=== PATIENT | male | born 1955 | race Asian ===

== ENCOUNTER 2018-10-07 10:24 | Emergency (ER) | payer SELFPAY ==
[~2018-10-07] VITALS: Ht 177.8 cm; Wt 113.6 kg
[2018-10-07] MEDS ORDERED: AUD NEB (10:36)
[2018-10-07] MEDS ORDERED: LOSA25TA41 PO (10:36)
[2018-10-07] MEDS ORDERED: ATEN25TA PO (10:36)
[2018-10-07] MEDS ORDERED: OMEG-50 PO (10:36)
[2018-10-07 15:05] VITALS: BP 210/139
== END 2018-10-07 15:27 | disposition home or self-care (01) ==
LOC: EMS 10:25
DX: J40 Bronchitis, not specified as acute or chronic (principal); R07.89 Other chest pain; R60.0 Localized edema; E11.9 Type 2 diabetes mellitus without complications; I10 Essential (primary) hypertension; I25.2 Old myocardial infarction; Z87.891 Personal history of nicotine dependence

== ENCOUNTER → 2019-12-17 | Outpatient (CLI) | payer OTHER ==
[~2019-12-17] MED LIST: ATEN25TA PO; AUD NEB; LOSA25TA71 PO; OMEG-50 PO
[2019-12-17 11:09] LABS: BASOPHILS % (AUTO) 0.5 % (0.0-2.0); HEMOGLOBIN 14.1 g/dL (13.5-17.5); LYMPHOCYTES # (AUTO) 1.2 K/uL (1.0-4.8); MEAN CORPUSCULAR HEMOGLOBIN 31.4 pg (26.0-34.0); MEAN CORPUSCULAR HGB CONC 33.6 G/dL (31.0-37.0); MEAN CORPUSCULAR VOLUME 94 fL (80-100); MONOCYTES # (AUTO) 0.4 K/uL (0.1-1.0); MONOCYTES % (AUTO) 7.1 % (2.0-9.0); NEUTROPHILS # (AUTO) 4.3 K/uL (1.8-7.7); NEUTROPHILS % (AUTO) 68.4 % (40.0-70.0); PLATELET COUNT (AUTO) 171 K/uL (150-450); RED BLOOD CELL COUNT(AUTO) 4.49 MIL/uL (4.50-5.90); RED CELL DISTRIBUTION WIDTH 14.1 % (11.5-14.5)
[2019-12-17 11:26] LABS: ALBUMIN 3.3 g/dL (3.4-5.0); CALCIUM, TOTAL 8.4 mg/dL (8.8-10.5); CREATININE 1.77 mg/dL (0.60-1.30); PHOSPHORUS 2.8 mg/dL (2.5-4.9); POTASSIUM 4.1 mmol/L (3.5-5.1)
[2019-12-17 12:08] LABS: APPEARANCE,URINE CLEAR (CLEAR); BILIRUBIN,URINE NEGATIVE (NEGATIVE); GLUCOSE, URINE (UA) 250 mg/dL (NEGATIVE); KETONES,URINE NEGATIVE (NEGATIVE); LEUKOCYTE ESTERASE ,URINE NEGATIVE (NEGATIVE); NITRATE,URINE NEGATIVE (NEGATIVE); OCCULT BLOOD,URINE TRACE (NEGATIVE); PH,URINE 6.5 (5.0-8.0); PROTEIN,URINE SEE CONFIRM (NEGATIVE); UROBILINOGEN,URINE 0.2 mg/dL (<=1.0)
[2019-12-17 12:21] LABS: SULFOSALICYLIC ACID,URINE 1+ (Negative)
[2019-12-17 12:24] LABS: BACTERIA,URINE None Seen /HPF (None Seen); RBC,URINE None Seen /HPF (0-2); SQUAMOUS EPITHELIAL CELL,UR Few /LPF (None Seen); WBC,URINE None Seen /HPF (0-5)
[2019-12-17 12:36] LABS: CREATININE,URINE RANDOM 85.8 mg/dL (30.0-125.0); PROTEIN,URINE RANDOM 168 mg/dL (0-11.9)
== END | disposition home or self-care (01) ==
LOC: RADPV 10:22
PROVIDERS: ATTEND Internal Medicine Nephrology
DX: I12.9 Hypertensive chronic kidney disease with stage 1 through stage 4 chronic kidney disease, or unspecified chronic kidney disease (principal); N18.3 Chronic kidney disease, stage 3 (moderate); E03.9 Hypothyroidism, unspecified; I25.83 Coronary atherosclerosis due to lipid rich plaque; N28.1 Cyst of kidney, acquired
CPT/HCPCS: 76770; 82043; 82570; 83735; 84156

== ENCOUNTER 2020-10-06 14:34 | Emergency (ER) | payer OTHER ==
[~2020-10-06] VITALS: Ht 175.3 cm; Wt 118.2 kg
[~2020-10-06 14:34] MED LIST changes: +ATEN-73 PO; -ATEN25TA PO; +LOSA25TA21 PO; -LOSA25TA71 PO
[2020-10-06] MEDS ORDERED: LEVO50 PO (14:46)
[2020-10-06] MEDS ORDERED: FURO80 PO (14:46)
[2020-10-06] MEDS ORDERED: LOSA50TA37 PO (14:46)
[2020-10-06] MEDS ORDERED: SUMA25TA9 PO (14:46)
[2020-10-06] MEDS ORDERED: OMEG-135 PO (14:46)
[2020-10-06] MEDS ORDERED: CETI-450 PO (14:46)
[2020-10-06] MEDS ORDERED: CARV25 PO (14:46)
[2020-10-06] MEDS ORDERED: AMLO-258 PO (14:46)
[2020-10-06] MEDS ORDERED: ASPI-728 PO (14:46)
[2020-10-06] MEDS ORDERED: CANA100T PO (14:46)
[2020-10-06] MEDS ORDERED: ATOR40TA28 PO (14:46)
[2020-10-06] MEDS ORDERED: DEXAMETHASONE SOD PHOS 4 MG/ML 5 ML VIAL IM ONE (21:45)
[2020-10-06 22:21] VITALS: BP 132/80
== END 2020-10-06 22:23 | disposition home or self-care (01) ==
LOC: EMS 14:42
DX: S16.1XXA Strain of muscle, fascia and tendon at neck level, initial encounter (principal); E11.9 Type 2 diabetes mellitus without complications; E78.00 Pure hypercholesterolemia, unspecified; X58.XXXA Exposure to other specified factors, initial encounter; Y93.89 Activity, other specified; Y92.89 Other specified places as the place of occurrence of the external cause; Y99.8 Other external cause status
CPT/HCPCS: 70450; 72125; 82962; 96372; 99285; J1100

== ENCOUNTER 2024-01-19 11:40 | Emergency (ER) | payer MEDICARE, OTHER ==
[~2024-01-19] VITALS: Ht 175.3 cm; Wt 131.4 kg
[~2024-01-19 11:40] MED LIST changes: +ALBU2.5V39 NEB; +AMLO-258 PO; +ASPI-1450 PO; -ATEN-73 PO; +ATOR40TA28 PO; -AUD NEB; +CANA100T PO; +CARV25 PO; +CETI-450 PO; +FURO80 PO; +LEVO50 PO; +LOSA-382 PO; -LOSA25TA21 PO; +OMEG-135 PO; -OMEG-50 PO; +SUMA25TA15 PO
[2024-01-19 11:43] VITALS: TEMP 98
[2024-01-19 12:38] LABS: COVID AG,FIA SOURCE NASAL SWAB
[2024-01-19] MEDS: FUROSEMIDE 40 MG/4 ML VIAL IVP ONE (12:41)
[2024-01-19 12:51] LABS: BASOPHILS % (AUTO) 1.1 % (0.0-2.0); HEMATOCRIT 44.6 % (41-53); HEMOGLOBIN 14.8 g/dL (13.5-17.5); LYMPHOCYTES # (AUTO) 1.1 K/uL (1.0-4.8); LYMPHOCYTES % (AUTO) 19.7 % (22.0-44.0); MEAN CORPUSCULAR HEMOGLOBIN 31.8 pg (26.0-34.0); MEAN CORPUSCULAR HGB CONC 33.3 G/dL (31.0-37.0); MEAN CORPUSCULAR VOLUME 96 fL (80-100); MONOCYTES # (AUTO) 0.5 K/uL (0.1-1.0); MONOCYTES % (AUTO) 8.2 % (2.0-9.0); NEUTROPHILS # (AUTO) 3.7 K/uL (1.8-7.7); PLATELET COUNT (AUTO) 151 K/uL (150-450); RED BLOOD CELL COUNT(AUTO) 4.67 MIL/uL (4.50-5.90); RED CELL DISTRIBUTION WIDTH 14.6 % (11.5-14.5); WHITE BLOOD COUNT (AUTO) 5.6 K/uL (4.5-11.0)
[2024-01-19 13:00] LABS: ANION GAP 11 mmol/L (8-16); CALCIUM, TOTAL 8.2 mg/dL (8.8-10.5); CARBON DIOXIDE 24 mmol/L (22-29); CHLORIDE 105 mmol/L (98-107); CREATININE 2.11 mg/dL (0.60-1.30); GLOMERULAR FILTR. RATE CALC 32 mL/min (>60); GLUCOSE,RANDOM 123 mg/dL (70-110); POTASSIUM 4.5 mmol/L (3.5-5.1); SODIUM SERUM 140 mmol/L (136-145); UREA NITROGEN, BLOOD 29 mg/dL (7-18)
[2024-01-19 13:00] LABS: APPEARANCE,URINE CLEAR (CLEAR); BILIRUBIN,URINE NEGATIVE (NEGATIVE); COLOR,URINE LIGHT YELLOW (YELLOW); GLUCOSE, URINE (UA) >=1000 mg/dL (NEGATIVE); KETONES,URINE NEGATIVE (NEGATIVE); LEUKOCYTE ESTERASE ,URINE NEGATIVE (NEGATIVE); NITRATE,URINE NEGATIVE (NEGATIVE); OCCULT BLOOD,URINE SMALL (NEGATIVE); PH,URINE 5.5 (5.0-8.0); PROTEIN,URINE 100-200,SEE CONFIRM mg/dL (NEGATIVE); SPECIFIC GRAVITIY, URINE 1.017 (1.003-1.030); UROBILINOGEN,URINE <=1.0 mg/dL (<=1.0)
[2024-01-19 13:03] LABS: INFLUENZA TYPE A NEGATIVE FOR TYPE A (NEGATIVE); INFLUENZA TYPE B NEGATIVE FOR TYPE B (NEGATIVE); SARS-COV2 (COVID) ANTIGEN,FIA Negative (Negative)
[2024-01-19 13:06] LABS: ALANINE AMINOTRANSFERASE 28 U/L (12-78); ALBUMIN 3.2 g/dL (3.4-5.0); ALKALINE PHOSPHATASE 80 U/L (46-116); ASPARTATE AMINOTRANSFERASE 22 U/L (15-37); BILIRUBIN,TOTAL 0.7 mg/dL (0.1-1.0); LIPASE 74 U/L (16-77); TOTAL PROTEIN, SERUM 7.3 g/dL (6.4-8.2)
[2024-01-19 13:11] LABS: LACTIC ACID 1.4 mmol/L (0.4-2.0)
[2024-01-19 13:14] LABS: SULFOSALICYLIC ACID,URINE 1+ (Negative)
[2024-01-19 13:15] LABS: BACTERIA,URINE None Seen /HPF (None Seen); RBC,URINE None Seen /HPF (0-2); SQUAMOUS EPITHELIAL CELL,UR Few /LPF (None Seen); WBC,URINE None Seen /HPF (0-5)
[2024-01-19 13:18] LABS: B-TYPE NATRIURETIC PEPTIDE 55 pg/mL (0-100)
[2024-01-19 13:30] LABS: TROPONIN I-HIGH SENSITIVITY 32 ng/L (<76)
[2024-01-19] MEDS ORDERED: ACETAMINOPHEN 325 MG TABLET PO PRN (14:15)
[2024-01-19] MEDS ORDERED: ONDANSETRON HCL 4 MG/2 ML VIAL IVP PRN (14:15)
[2024-01-19] MEDS ORDERED: BISACODYL 10 MG RECTAL RECTAL SUPPOSITORY PR PRN (14:15)
[2024-01-19] MEDS ORDERED: FURO-151 PO (14:43)
[2024-01-19] MEDS ORDERED: GUAIFDM PO (14:44)
[2024-01-19 14:53] LABS: THYROID STIMULATING HORMONE 2.97 uIU/mL (0.36-3.74)
[2024-01-19 14:58] VITALS: BP 114/79; PULSE 64; RESP 18
[2024-01-19] MEDS ORDERED: HEPARIN SODIUM,PORCINE 5,000 UNITS/ML VIAL SQ SCH (16:00)
[2024-01-19] MEDS ORDERED: DOCUSATE SODIUM 100 MG CAPSULE PO SCH (21:00)
[2024-01-20] MEDS ORDERED: FUROSEMIDE 40 MG/4 ML VIAL IVP SCH (09:00)
[2024-01-20] MEDS ORDERED: ASPIRIN 81 MG CHEWABLE TABLET PO SCH (09:00)
[2024-01-20] MEDS ORDERED: FAMOTIDINE 20 MG TABLET PO SCH (09:00)
[2024-01-20] MEDS ORDERED: ATORVASTATIN CALCIUM 20 MG TABLET PO SCH (09:00)
== END 2024-01-19 15:02 | disposition home or self-care (01) ==
LOC: EMS 12:08
DX: R60.0 Localized edema (principal); E66.01 Morbid (severe) obesity due to excess calories; G47.30 Sleep apnea, unspecified; J45.909 Unspecified asthma, uncomplicated; E11.9 Type 2 diabetes mellitus without complications; E78.00 Pure hypercholesterolemia, unspecified; I11.0 Hypertensive heart disease with heart failure; I50.9 Heart failure, unspecified; Z87.891 Personal history of nicotine dependence; Z98.890 Other specified postprocedural states; Z20.822 Contact with and (suspected) exposure to COVID-19
CPT/HCPCS: 99285; 96374; 71045; 87426; 80053; 81001; 82962; 83605; 83690; 83880; 84443; 84484; 85025; 87040; 87804; 36415; 93005; J1940; 81002

== ENCOUNTER 2024-04-18 07:57 | Emergency (ER) | payer MEDICARE, OTHER ==
[~2024-04-18] VITALS: Ht 170.2 cm; Wt 100.0 kg
[~2024-04-18 07:57] MED LIST changes: +FURO-151 PO; +GUAIFDM PO
[2024-04-18] MEDS ORDERED: SEMA7TAB2 PO (08:24)
[2024-04-18] MEDS ORDERED: SACU1TAB4 PO (08:24)
[2024-04-18] MEDS ORDERED: EMPA10TA3 PO (08:24)
[2024-04-18] MEDS ORDERED: ISOS30TA92 PO (08:24)
[2024-04-18] MEDS ORDERED: FINE10TA PO (08:24)
[2024-04-18 08:55] LABS: BASOPHILS % (AUTO) 0.6 % (0.0-2.0); EOSINOPHILS % (AUTO) 3.3 % (1.0-6.0); HEMATOCRIT 41.1 % (41-53); HEMOGLOBIN 13.6 g/dL (13.5-17.5); LYMPHOCYTES # (AUTO) 1.2 K/uL (1.0-4.8); LYMPHOCYTES % (AUTO) 15.1 % (22.0-44.0); MEAN CORPUSCULAR HEMOGLOBIN 31.5 pg (26.0-34.0); MEAN CORPUSCULAR VOLUME 96 fL (80-100); MONOCYTES # (AUTO) 0.7 K/uL (0.1-1.0); NEUTROPHILS # (AUTO) 5.5 K/uL (1.8-7.7); PLATELET COUNT (AUTO) 151 K/uL (150-450); RED CELL DISTRIBUTION WIDTH 14.2 % (11.5-14.5); WHITE BLOOD COUNT (AUTO) 7.7 K/uL (4.5-11.0)
[2024-04-18 09:04] LABS: CALCIUM, TOTAL 8.5 mg/dL (8.8-10.5); CREATININE 2.6 mg/dL (0.60-1.30); POTASSIUM 4.2 mmol/L (3.5-5.1)
[2024-04-18] MEDS: OxyCODONE HCL/ACETAMINOPHEN 5-325 MG TABLET PO ONE (09:14)
[2024-04-18] MEDS: CefTRIAXone SODIUM 1 GM/VIAL IM ONE (10:08)
[2024-04-18] MEDS: LIDOCAINE/PF 1% 2 ML VIAL IM ONE (10:09)
[2024-04-18] MEDS ORDERED: PERCT PO (10:44)
[2024-04-18] MEDS ORDERED: CEPH-558 PO (10:44)
[2024-04-18 11:02] VITALS: BP 105/78; PULSE 68; RESP 18; TEMP 98
[2024-04-20] MEDS ORDERED: AMLO5TAB66 PO (11:37)
[2024-04-20] MEDS ORDERED: FURO20TA4 PO (11:37)
[2024-04-20] MEDS ORDERED: FLUT16H NASAL (11:37)
[2024-04-20] MEDS ORDERED: SEMA14TA2 PO (11:37)
== END 2024-04-18 11:05 | disposition home or self-care (01) ==
LOC: EMS 07:57
DX: L03.115 Cellulitis of right lower limb (principal); J45.909 Unspecified asthma, uncomplicated; E78.00 Pure hypercholesterolemia, unspecified; E11.9 Type 2 diabetes mellitus without complications; I11.0 Hypertensive heart disease with heart failure; I50.9 Heart failure, unspecified; Z87.891 Personal history of nicotine dependence; Z98.890 Other specified postprocedural states
CPT/HCPCS: 99283; 80048; 82962; 85025; 36415; 96372; J0696; J3490